=== PATIENT | female | born 1940 | race Hispanic/Latino ===

== ENCOUNTER 2024-05-21 12:29 | Emergency (ER) | payer OTHER ==
[~2024-05-21] VITALS: Ht 152.4 cm; Wt 61.7 kg
--- NOTE | 2024-05-21 13:14 | EKG ---
[facility] Test Date: 2024-05-21 Test Time: 13:11:08 Pat Name: SHERMAN SHULTZ Department: [facility] Room: Gender: F Operating Room Rn: [id number] : 1940 Requested By: FINA GAGNON Order Number: [id number] Reading MD: Henok Garrett Measurements Intervals Thelma Rate: 82 P: 23 NV: 127 QRS: -4 QRSD: 87 T: 43 QT: 369 QTc: 430 Interpretive Statements Sinus rhythm ST elevation, consider inferior injury No previous ECG available for comparison Electronically Signed On 05-21-2024 16:05:37 VISITOR SERVICES COORDINATOR by Henok Garrett Please click the below link to view image of tracing.
--- NOTE | 2024-05-21 14:04 | HMCIMG ---
CT HEAD/BRAIN W/O CONTRAST HISTORY: Status post fall COMPARISON: None TECHNIQUE: Multiple sequential axial images of the head were obtained from the base of the skull through vertex. Patient was not given contrast through intravenous route. FINDINGS: Large left periorbital soft tissue swelling is seen. The ventricles and extraventricular CSF spaces are dilated consistent with cerebral atrophy. Nonspecific white matter changes seen. There is no midline shift, mass effect or herniation. No acute intracranial bleed is seen. Visualized portion of the paranasal sinuses are grossly within normal limits. IMPRESSION: 1. No acute intracranial bleed is seen. 2. Atrophy with white matter changes. Large left periorbital soft tissue swelling-hematoma is seen. CT was performed with one or more following dose reduction techniques: automated exposure control, adjustment of the mA and kv according to patient's size, or use of a iterative reconstruction technique.
--- NOTE | 2024-05-21 14:05 | HMCIMG ---
CT CERVICAL SPINE W/O CONTRAST HISTORY: Status post fall COMPARISON: None TECHNIQUE: Multiple sequential axial images of the cervical spine were obtained including post processing sagittal and coronal reconstruction images. Patient was not given contrast through intravenous route. FINDINGS: There are degenerative changes with mild cervical spine spondylosis. There is straightening of normal lordotic cervical curvature which may be related to muscle spasm or positioning. There is no loss of vertebral height. Evaluation for disc and cord pathology is limited with CT study. No evidence of fracture or dislocation is seen. IMPRESSION: 1. No fracture is seen. DJD. CT was performed with one or more following dose reduction techniques: automated exposure control, adjustment of the mA and kv according to patient's size, or use of a iterative reconstruction technique.
--- NOTE | 2024-05-21 14:07 | HMCIMG ---
CT MAXILLOFACIAL W/O CONTRAST HISTORY: Status post fall COMPARISON: None TECHNIQUE: Multiple sequential high-resolution axial images of the paranasal sinuses were obtained. Postprocessing sagittal and coronal reconstruction images were also obtained. Patient was not given contrast through intravenous route. FINDINGS: Left periorbital soft tissue swelling is seen. Nasal septum is grossly midline. There is no evidence of mucoperiosteal thickening involving the paranasal sinuses. The infundibula are patent bilaterally. No acute displaced fracture is seen. There is no evidence of air-fluid level in the paranasal sinuses. Parapharyngeal fat planes are preserved bilaterally. IMPRESSION: 1. No acute displaced fracture is seen. Left periorbital soft tissue swelling. CT was performed with one or more following dose reduction techniques: automated exposure control, adjustment of the mA and kv according to patient's size, or use of a iterative reconstruction technique.
--- NOTE | 2024-05-21 14:41 | ERN ---
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 Patient reports head injury, left eye swelling, left eyebrow laceration and right arm pain, but denies any LOC, vomiting, or other associated symptoms at this time. Patient states she tripped and fell hitting the left side of her face on the ground. No blood thinners. 400 mg of Motrin taken SOFTWARE DEVELOPMENT PROJECT MANAGER Allergies: Coded Allergies: No Known Allergies (Unverified Allergy, Unknown, 05/21/24) Home Meds Active Scripts Cephalexin Monohydrate (Keflex) 500 Mg Cap, 500 MG PO BID for 7 Days, #14 CAP Prov:FINA GAGNON MD 05/21/24 Past Medical History Past Medical History: High Cholesterol Additional Past Medical Hx: PARKINSONS Surgical History: Appendectomy, BTL Review of System Dictation Constitutional: Positive for fall Negative for fever,chills, and weight loss Eyes: Positive for left eye swelling, left eyebrow laceration Negative for injury, pain,redness, and discharge ENT: Negative for injury,pain or swelling Cardiovascular: Negative for chest pain, palpitations, and edema Respiratory: Negative for shortness of breath, cough, and wheezing, Abdomen/GI: Negative for abdominal pain, nausea, vomiting, diarrhea, and constipation Back: Negative for injury and pain : Negative for injury, bleeding and discharge MS/Extremity: Positive for right arm pain Negative for injury and deformity Skin: Negative for rash, and discoloration Neuro: Positive for head injury Negative for headache, weakness, numbness, tingling, and seizure Psych: Negative for suicide ideation, homicidal ideation, and hallucinations Initial Vital Sign VS Vital Signs Date Time Temp Pulse Resp B/P (MAP) Pulse Ox O2 Delivery O2 Flow Rate FiO2 05/21/24 12:50 97.9 87 16 134/85 100 Room Air 0 05/21/24 16:41 21 Physical Exam Dictation General: awake, alert, NAD Head/Face: Normocephalic, atraumatic Eyes: PERRL, EOMI, vision at baseline, 3.5 cm laceration to left eyebrow, left Periorbital swelling, extraocular movements intact anterior chamber clear ENT: oral cavity clear, TMs clear, no signs of infection Neck: Trachea midline, supple, no nuchal rigidity Cardiovascular: RRR, normal S1/S2, No MRGs, no JVD Respiratory: CTAB, no respiratory distress, No rales or wheezes Abdomen: Soft, non-tender, non-distended, normal bowel sounds, no guarding or rebound. Skin: Warm, dry, normal turgor, no rash MS/Extremity: Pulses equal, no cyanosis, neurovascular intact, FROM Neuro: COAx4, GCS 15, strength 5/5, CN 2-12 intact, normal cerebellar exam, normal gait, Psych: Normal behavior, mood, and affect normal Results (Laboratory/Radiology) Laboratory/Radiology Laboratory Tests Test 05/21/24 14:24 White Blood Count 12.4 K/uL (4.8-10.8) H Red Blood Count 5.08 MIL/uL (4.00-5.50) Hemoglobin 14.7 g/dL (12.0-16.0) Hematocrit 44.6 % (36-48) Mean Corpuscular Volume 87.8 fL (79-99) Mean Corpuscular Hemoglobin 28.9 pg (27.0-33.0) Mean Corpuscular Hemoglobin Concent 33.0 g/dL (32.0-36.0) Red Cell Distribution Width 12.7 % (11.0-15.5) Platelet Count 192 K/uL (130-400) Mean Platelet Volume 11.7 fL (7.5-10.5) H Immature Granulocyte % (Auto) 0.4 % (0-1) Neutrophils (%) (Auto) 82.7 % (40.0-77.0) H Lymphocytes (%) (Auto) 11.5 % (21.0-51.0) L Monocytes (%) (Auto) 4.6 % (3.0-13.0) Eosinophils (%) (Auto) 0.3 % (0.0-8.0) Basophils (%) (Auto) 0.5 % (0.0-5.0) Neutrophils # (Auto) 10.3 K/uL (1.8-7.7) H Lymphocytes # (Auto) 1.4 K/uL (1.0-4.8) Monocytes # (Auto) 0.6 K/uL (0.1-1.0) Eosinophils # (Auto) 0.04 K/uL (0.00-0.70) Basophils # (Auto) 0.06 K/uL (0.00-0.20) Absolute Immature Granulocyte (auto 0.05 K/uL (0-1) Nucleated Red Blood Cells 0.0 % (0.0-0.19) Prothrombin Time 10.9 SEC (9.6-11.6) Prothromb Time International Ratio 1.03 (0.85-1.15) Activated Partial Thromboplast Time 23.4 SEC (26.3-35.5) L Sodium Level 133 mmol/L (136-145) L Potassium Level 4.2 mmol/L (3.5-5.1) Chloride Level 96 mmol/L (101-111) L Carbon Dioxide Level 32 mmol/L (21-32) Blood Urea Nitrogen 11 mg/dL (7-18) Creatinine 0.6 mg/dL (0.5-1.0) Glomerular Filtration Rate Calc 89 mL/min (>90) Random Glucose 130 mg/dL (70-105) H Total Calcium 9.4 mg/dL (8.5-10.1) Labs Reviewed?: Yes EKG Comment: EKG 05/21/2024 time 1:11 p.m. ventricular rate 82, OK 127, QRS D 87, QT 369. Sinus rhythm, ST elevation, consider inferior injury. No STEMI X-RAY Comment: REASON: fall ORDERING PHYSICIAN: FINA GAGNON MD PROCEDURE: CXR1VW - CHEST 1VW CHEST 1VW HISTORY: Status post fall COMPARISON: 07/29/2003 FINDINGS: A frontal projection of the chest was obtained. No acute pulmonary infiltrates is seen. The heart is normal in size. There is hiatal hernia. Degenerative changes are seen. No evidence of aortic calcification is seen. IMPRESSION: 1. No acute pulmonary infiltrate is seen. Hiatal hernia. DICTATED BY: DEANNA GRIMM MD DATE: 05/21/24 1522 REASON: fall ORDERING PHYSICIAN: FINA GAGNON MD PROCEDURE: HUM 2V RT - HUMERUS 2+VWS RT HUMERUS 2+VWS RT HISTORY: Status post fall COMPARISON: None TECHNIQUE: 2 images of right humerus were obtained. FINDINGS: There is no acute displaced fracture or dislocation. Degenerative changes are seen. IMPRESSION: 1. Findings as described above. DICTATED BY: DEANNA GRIMM MD DATE: 05/21/24 1656 REASON: fall ORDERING PHYSICIAN: FINA GAGNON MD PROCEDURE: PELVIS - PELVIS 1-2VWS PELVIS 1-2VWS HISTORY: Status post fall COMPARISON: None TECHNIQUE: Frontal projection of the pelvis was obtained. FINDINGS: There is no acute displaced fracture or dislocation. Bilateral hip joint space narrowing are seen. Degenerative changes are seen. IMPRESSION: 1. Findings as described above. DICTATED BY: DEANNA GRIMM MD DATE: 05/21/[address] Scan Comment: REASON: fall ORDERING PHYSICIAN: FINA GAGNON MD PROCEDURE: C SPIN WO - CT CERVICAL SPINE W/O CONTRAST CT CERVICAL SPINE W/O CONTRAST HISTORY: Status post fall COMPARISON: None TECHNIQUE: Multiple sequential axial images of the cervical spine were obtained including post processing sagittal and coronal reconstruction images. Patient was not given contrast through intravenous route. FINDINGS: There are degenerative changes with mild cervical spine spondylosis. There is straightening of normal lordotic cervical curvature which may be related to muscle spasm or positioning. There is no loss of vertebral height. Evaluation for disc and cord pathology is limited with CT study. No evidence of fracture or dislocation is seen. IMPRESSION: 1. No fracture is seen. DJD. CT was performed with one or more following dose reduction techniques: automated exposure control, adjustment of the mA and kv according to patient's size, or use of a iterative reconstruction technique. DICTATED BY: DEANNA GRIMM MD DATE: 05/21/24 1401 REASON: fall ORDERING PHYSICIAN: FINA GAGNON MD PROCEDURE: HEAD WO - CT HEAD/BRAIN W/O CONTRAST CT HEAD/BRAIN W/O CONTRAST HISTORY: Status post fall COMPARISON: None TECHNIQUE: Multiple sequential axial images of the head were obtained from the base of the skull through vertex. Patient was not given contrast through intravenous route. FINDINGS: Large left periorbital soft tissue swelling is seen. The ventricles and extraventricular CSF spaces are dilated consistent with cerebral atrophy. Nonspecific white matter changes seen. There is no midline shift, mass effect or herniation. No acute intracranial bleed is seen. Visualized portion of the paranasal sinuses are grossly within normal limits. IMPRESSION: 1. No acute intracranial bleed is seen. 2. Atrophy with white matter changes. Large left periorbital soft tissue swelling-hematoma is seen. CT was performed with one or more following dose reduction techniques: automated exposure control, adjustment of the mA and kv according to patient's size, or use of a iterative reconstruction technique. DICTATED BY: DEANNA GRIMM MD DATE: 05/21/24 1358 REASON: fall ORDERING PHYSICIAN: FINA GAGNON MD PROCEDURE: MAXFACI WO - CT MAXILLOFACIAL W/O CONTRAST CT MAXILLOFACIAL W/O CONTRAST HISTORY: Status post fall COMPARISON: None TECHNIQUE: Multiple sequential high-resolution axial images of the paranasal sinuses were obtained. Postprocessing sagittal and coronal reconstruction images were also obtained. Patient was not given contrast through intravenous route. FINDINGS: Left periorbital soft tissue swelling is seen. Nasal septum is grossly midline. There is no evidence of mucoperiosteal thickening involving the paranasal sinuses. The infundibula are patent bilaterally. No acute displaced fracture is seen. There is no evidence of air-fluid level in the paranasal sinuses. Parapharyngeal fat planes are preserved bilaterally. IMPRESSION: 1. No acute displaced fracture is seen. Left periorbital soft tissue swelling. CT was performed with one or more following dose reduction techniques: automated exposure control, adjustment of the mA and kv according to patient's size, or use of a iterative reconstruction technique. DICTATED BY: DEANNA GRIMM MD DATE: 05/21/24 1402 ED Course ED Course Orders Procedure Category Date Status Time Ct Head/Brain W/O CT 05/21/24 Resulted Contrast 13:05 Ct Maxillofacial W/O CT 05/21/24 Resulted Contrast 13:05 Ct Cervical Spine W/O CT 05/21/24 Resulted Contrast 13:05 Pelvis 1-2vws RAD 05/21/24 Resulted 13:05 Chest 1vw RAD 05/21/24 Resulted 13:05 Humerus 2+Vws Rt RAD 05/21/24 Resulted 13:05 12 Lead Ekg Tracing- EKG 05/21/24 Resulted Technical 13:06 Basic Metabolic Panel LAB 05/21/24 Complete 13:06 Cbc With Differential LAB 05/21/24 Complete 13:06 Pt And Ptt LAB 05/21/24 Complete 13:06 Vital Signs Date Time Temp Pulse Resp B/P (MAP) Pulse Ox O2 Delivery O2 Flow Rate FiO2 05/21/24 17:52 98.1 70 18 156/70 96 Room Air* 0 21 05/21/24 16:41 98.2 83 19 98/59 95 Room Air* 0 21 05/21/24 12:50 97.9 87 16 134/85 100 Room Air 0 Medical Decision Making MDM MDM: Differential diagnosis: Fall, head injury, laceration Rationale: Tests considered and ordered secondary to shared decision making in clude: labs, ECG and radiology Risk of complication and/or morbidity or mortality of patient management: None Medications-Per medication reconciliation Need for hospitalization: Patient does not meet criteria for hospitalization. Need for emergency major/minor surgery: No There are no social concerns with this patient. Prescription drug management Prescriptions will include symptomatic care I independently interpreted the test that were performed, results were reviewed by me and considered findings on radiology if ordered. Procedure Procedure Dictation: 3.5 cm superficial laceration to left eyebrow. Wound was copiously irrigated, wound was repaired with Steri-Strips. Standard postprocedure care was explained and return precautions are given. Patient tolerated the procedure well without complications. Wound Location: face (Left eyebrow ) Wound Length (cm): 3 Wound's Depth, Shape: superficial Wound Explored: clean Wound Repaired With: Steri-strips Layer Closure?: Yes DX & DISP Disposition: Discharge Departure Impression: Primary Impression: Head injury Additional Impression: Periorbital hematoma of left eye Condition: Stable Scripts Cephalexin Monohydrate (Keflex) 500 Mg Cap 500 MG PO BID for 7 Days, #14 CAP Prov: FINA GAGNON MD 05/21/24 Referrals: WAYNE YEE DO (PCP) FINA GAGNON MD May 21, 2024 14:41
[2024-05-21 14:55] LABS: BASOPHILS # (AUTO) 0.06 K/uL (0.00-0.20); BASOPHILS % (AUTO) 0.5 % (0.0-5.0); EOSINOPHILS # (AUTO) 0.04 K/uL (0.00-0.70); EOSINOPHILS % (AUTO) 0.3 % (0.0-8.0); HEMATOCRIT 44.6 % (36-48); IMMATURE GRANULOCYTE ABSOLUTE 0.05 K/uL (0-1); LYMPHOCYTES # (AUTO) 1.4 K/uL (1.0-4.8); LYMPHOCYTES % (AUTO) 11.5 % (21.0-51.0); MEAN CORPUSCULAR HEMOGLOBIN 28.9 pg (27.0-33.0); MEAN CORPUSCULAR VOLUME 87.8 fL (79-99); MONOCYTES # (AUTO) 0.6 K/uL (0.1-1.0); MONOCYTES % (AUTO) 4.6 % (3.0-13.0); NEUTROPHILS # (AUTO) 10.3 K/uL (1.8-7.7); NEUTROPHILS % (AUTO) 82.7 % (40.0-77.0); PLATELET COUNT (AUTO) 192 K/uL (130-400); RED BLOOD CELL COUNT(AUTO) 5.08 MIL/uL (4.00-5.50); RED CELL DISTRIBUTION WIDTH 12.7 % (11.0-15.5); WHITE BLOOD COUNT (AUTO) 12.4 K/uL (4.8-10.8)
[2024-05-21 15:06] LABS: INR 1.03 (0.85-1.15); PROTHROMBIN TIME 10.9 SEC (9.6-11.6)
[2024-05-21 15:07] LABS: PARTIAL THROMBOPLASTIN TIME 23.4 SEC (26.3-35.5)
--- NOTE | 2024-05-21 15:25 | HMCIMG ---
CHEST 1VW HISTORY: Status post fall COMPARISON: 07/29/2003 FINDINGS: A frontal projection of the chest was obtained. No acute pulmonary infiltrates is seen. The heart is normal in size. There is hiatal hernia. Degenerative changes are seen. No evidence of aortic calcification is seen. IMPRESSION: 1. No acute pulmonary infiltrate is seen. Hiatal hernia.
--- NOTE | 2024-05-21 15:32 | HMCIMG ---
PELVIS 1-2VWS HISTORY: Status post fall COMPARISON: None TECHNIQUE: Frontal projection of the pelvis was obtained. FINDINGS: There is no acute displaced fracture or dislocation. Bilateral hip joint space narrowing are seen. Degenerative changes are seen. IMPRESSION: 1. Findings as described above.
[2024-05-21 15:48] LABS: CREATININE 0.6 mg/dL (0.5-1.0); POTASSIUM 4.2 mmol/L (3.5-5.1)
--- NOTE | 2024-05-21 16:58 | HMCIMG ---
HUMERUS 2+VWS RT HISTORY: Status post fall COMPARISON: None TECHNIQUE: 2 images of right humerus were obtained. FINDINGS: There is no acute displaced fracture or dislocation. Degenerative changes are seen. IMPRESSION: 1. Findings as described above.
[2024-05-21] MEDS ORDERED: CEPH500B PO (17:38)
[2024-05-21 17:52] VITALS: BP 156/70; PULSE 70; RESP 18; TEMP 98; O2SAT 96
--- NOTE | 2024-05-21 17:53 | NUR ---
Doctor Micheline provided wound care , place steri strips to left eye
== END 2024-05-21 18:02 | disposition home or self-care (01) ==
LOC: EDH 12:29
DX: S01.112A Laceration without foreign body of left eyelid and periocular area, initial encounter (principal); E78.00 Pure hypercholesterolemia, unspecified; Z90.49 Acquired absence of other specified parts of digestive tract; Z98.51 Tubal ligation status; W18.39XA Other fall on same level, initial encounter; Y93.89 Activity, other specified; Y92.89 Other specified places as the place of occurrence of the external cause; Y99.8 Other external cause status
CPT/HCPCS: 36415; 70450; 70486; 71045; 72125; 72170; 73060; 80048; 85025; 85610; 85730; 93005; 99285